=== PATIENT | female | born 2005 | race Caucasian/White ===

== ENCOUNTER 2024-04-01 18:34 | Inpatient (IN) | payer MEDICAID ==
[2024-04-01 19:40] VITALS: BMI 21.4
[2024-04-01] MEDS ORDERED: Ondansetron PF 4 MG/2 ML Vial IVP PRN ×2 (19:52→20:45)
[2024-04-01] MEDS ORDERED: Lidocaine 1% (PF) 30 ML VIAL SC PRN (19:52)
[2024-04-01] MEDS ORDERED: hydrALAZINE 20 MG/ML VIAL SLOW IVP PRN ×2 (19:52→20:45)
[2024-04-01] MEDS ORDERED: Promethazine HCl 25 MG/ML VIAL IM PRN (19:52)
[2024-04-01] MEDS ORDERED: Ibuprofen 800 MG TAB PO PRN (19:52)
[2024-04-01] MEDS ORDERED: Oxytocin 30 units/NS 500 ML 500 ML IV SCH ×3 (20:00→20:45)
[2024-04-01] MEDS ORDERED: Lactated Ringer's 1,000 ML IV SCH (20:00)
[2024-04-01] MEDS: fentaNYL 50 mcg/mL 1 mL Vial SLOW IVP PRN (20:15)
[2024-04-01 20:42] LABS: Hemoglobin 11.8 g/dL (12.0-15.5); Mean Corpuscular HGB CONC 34.7 g/dL (32.0-36.0); Mean Corpuscular Hemoglobin 30.5 pg (27.0-33.0); Mean Corpuscular Volume 87.9 fL (81.6-98.3); Mean Platelet Volume 11.8 fL (7.4-10.4); Platelet Count 223 10x3/uL (150-450); RBC Distribution Width 13.8 % (11.5-14.5); Red Blood Cell (RBC) Count 3.87 10x6/uL (3.90-5.03); White Blood Cell (WBC) Count 10.08 10x3/uL (3.5-10.5)
[2024-04-01] MEDS ORDERED: Preparation H Ointment 28 GM TUBE PR PRN (20:45)
[2024-04-01] MEDS ORDERED: Lanolin Ointment 7 GM TUBE TOP PRN (20:45)
[2024-04-01] MEDS ORDERED: Boostrix 0.5 ML (Tdap) VIAL (>/=7 yrs of age) IM ONE (20:45)
[2024-04-01] MEDS ORDERED: Misoprostol 200 MCG TAB VAG PRN (20:45)
[2024-04-01] MEDS ORDERED: Benzocaine-Menthol 82.5 ML CAN TOP PRN (20:45)
[2024-04-01] MEDS ORDERED: Bisacodyl 10 MG SUPP PR PRN (20:45)
[2024-04-01] MEDS ORDERED: Milk Of Magnesia 30 ML UDCUP PO PRN (20:45)
[2024-04-01 21:30] LABS: HBsAg Index 0.23 S/CO (0-0.99); Hep B Surf Ag - L&D Non-Reactive S/CO (NonReactive)
[2024-04-01 21:34] LABS: Syphilis Antibody Nonreactive (Nonreactive); Syphilis Antibody Index 0.19 S/CO (<1.00 Non-Reactive)
[2024-04-01] MEDS: CEFAZOLIN 2 GM in Sodium Chloride 0.9% 100 ML IVPB SCH (23:58)
[2024-04-01] MEDS: Ibuprofen 800 MG TAB PO SCH (23:59)
[2024-04-02] MEDS: Docusate 100 MG CAP PO SCH
[2024-04-02] MEDS: Tranexamic Acid 1,000 MG/10 ML VIAL ONE (02:08)
[2024-04-02] MEDS: Erythromycin Base 0.5% Oint 1 GM TUBE ONE (02:08)
[2024-04-02] MEDS: Misoprostol 200 MCG TAB ONE (02:08)
[2024-04-02] MEDS: Phytonadione Neonatal 1 MG/0.5 ML AMP ONE (02:08)
[2024-04-02 05:50] LABS: #Basophils Less than 0.03 10x3/uL (0.0-0.2); #Eosinophils 0.03 10x3/uL (0.0-0.5); #Monocytes 0.95 10x3/uL (0.0-1.1); #Neutrophils 8.49 10x3/uL (1.5-8.4); %Basophils 0.2 % (0.0-2.0); %Eosinophils 0.3 % (0.0-6.0); %Lymphocytes 15.6 % (18.0-47.0); %Monocytes 8.4 % (0.0-10.0); %Neutrophils 75.1 % (40.0-75.0); Hematocrit 28.2 % (34.9-44.5); Hemoglobin 9.4 g/dL (12.0-15.5); Mean Corpuscular HGB CONC 33.3 g/dL (32.0-36.0); Mean Corpuscular Hemoglobin 29.5 pg (27.0-33.0); Mean Corpuscular Volume 88.4 fL (81.6-98.3); Mean Platelet Volume 11.2 fL (7.4-10.4); Platelet Count 154 10x3/uL (150-450); RBC Distribution Width 13.7 % (11.5-14.5); Red Blood Cell (RBC) Count 3.19 10x6/uL (3.90-5.03); White Blood Cell (WBC) Count 11.29 10x3/uL (3.5-10.5)
[2024-04-02] MEDS: Prenatal Vitamin 1 TAB PO SCH (08:56)
[2024-04-02] MEDS: Hepatitis B Vaccine 10 MCG/0.5 ML SYR ONE (08:56)
[2024-04-02] MEDS: Ferrous Sulfate 325 MG TAB PO SCH (08:56)
[2024-04-03 08:42] VITALS: BP 124/60; TEMP 98
== END 2024-04-03 14:35 | disposition home or self-care (01) | DRG 807 ==
LOC: CSHLD/OP 18:34 → CSHLD 19:53 → CSHPP 22:55
PROVIDERS: ADMIT Student in an Organized Health Care Education/Training Program; ATTEND Student in an Organized Health Care Education/Training Program
PROC: 10E0XZZ Delivery of Products of Conception, External Approach (ICD-10-PCS; principal; 2024-04-01)
PROC: 3E0334Z Introduction of Serum, Toxoid and Vaccine into Peripheral Vein, Percutaneous Approach (ICD-10-PCS; 2024-04-01)
DX: O26.893 Other specified pregnancy related conditions, third trimester (principal); Z37.0 Single live birth; Z67.11 Type A blood, Rh negative; Z3A.38 38 weeks gestation of pregnancy
CPT/HCPCS: 36415; 85025; 85461; 86762; 86780; 86850; 86900; 86901; 87340; 88307; 90384; 96372; 99285; J3010